=== PATIENT | male | born 1955 | race Caucasian/White ===

== ENCOUNTER 2021-07-12 08:04 | Observation (INO) | payer OTHER, SELFPAY ==
--- NOTE | 2021-07-11 08:10 | EKG12_ITS ---
Test Reason : PREOP Blood Pressure : / mmHG Vent. Rate : 074 BPM Atrial Rate : 074 BPM P-R Int : 202 ms QRS Dur : 092 ms QT Int : 356 ms P-R-T Axes : 031 021 034 degrees QTc Int : 395 ms Normal sinus rhythm Normal ECG Confirmed by MARIA VICTORIA VALENTINO, KIERSTEN ([id number]), film and video editor JOSIAH HORNER ([id number]) on 07/12/2021 8:51:29 AM Referred By: Hans Camp Confirmed By:KIERSTEN IRENE MD
[2021-07-11 08:41] LABS: Hematocrit 41.1 % (40-54); Hemoglobin 13.4 g/dL (13.0-16.5); Mean Corp Hgb Conc 32.6 g/dL (32-36); Mean Corpuscular Volume 91.9 fL (80-94); Mean Platelet Vol. 9.5 fl (6.2-12.0); Platelet Count 257 K/mm3 (150-450); RBC Distribution Width CV 13.7 % (11.6-14.6); RBC Distribution Width SD 46.6 fl (35.1-43.9); Red Blood Count 4.47 M/mm3 (4.6-6.2); White Blood Count 7.1 K/mm3 (4.4-11.0)
[2021-07-11 09:07] LABS: Anion Gap 5 (5-15); BUN 20 mg/dL (7-18); BUN/Creat Ratio 15.2 RATIO (10-20); Calcium,Total 9.7 mg/dL (8.5-10.1); Chloride 106 mmol/L (98-107); Creatinine, Serum 1.32 mg/dL (0.70-1.30); EST Glomerular Filtration Rate 58 mL/min (>60); Est Glom Filt Rate - Afr Amer 70 mL/min (>60); Glucose 137 mg/dL (74-106); Sodium Level 139 mmol/L (136-145)
[2021-07-11 09:15] LABS: Hemoglobin A1c 6.8 % (3.8-5.6)
[2021-07-12] VITALS (12 sets, daily range): BP systolic 114–147; BP diastolic 62–114; PULSE 53–84; RESP 15–20; TEMP 36.4–36.9; O2SAT 92–97; BMI 35.2
[2021-07-12] MEDS: Lactated Ringers 1,000 ML 15 ML IV ×3 (07:10→12:14)
[2021-07-12 07:40] LABS: Bedside Glucose 115 mg/dL (74-106)
[2021-07-12] MEDS: Cefazolin 2 GM in 0.9% Normal Saline 100 ML IV (07:58)
--- NOTE | 2021-07-12 08:07 | PCM.HP.STD ---
HPI - General HPI Narrative DILCIA PAGAN, is a 66 M who presents for transurethral resection of the prostate and proceed with left ureteroscopy possible laser lithotripsy and stent placement. PFSH Medical History Alcohol use Arthritis Cancer CPAP (continuous positive airway pressure) dependence Diabetes Dietary restriction Fatty liver High cholesterol History of irregular heartbeat History of pain when walking History of renal disease Hypertension Injury of head and neck Loss of consciousness Non-smoker Prostate disease Shortness of breath on exertion Syncope Home Medications atorvastatin 40 mg PO QHS 07/09/21 [History Last Taken Unknown] docusate sodium [Stool Softener] 100 mg PO PRN PRN 07/09/21 [History Last Taken Unknown] ibuprofen 400 mg PO Q6H PRN 07/09/21 [History Last Taken Unknown] lisinopril 5 mg PO DAILY 07/09/21 [History Last Taken Unknown] meloxicam 15 mg PO PRN PRN 07/09/21 [History Last Taken Unknown] metformin 500 mg PO TID 07/09/21 [History Last Taken Unknown] phenazopyridine [Pyridium] 200 mg PO TID PRN 07/09/21 [History Last Taken Unknown] pioglitazone 30 mg PO DAILY 07/09/21 [History Last Taken Unknown] tamsulosin 0.4 mg PO DAILY 07/09/21 [History Last Taken Unknown] ciprofloxacin HCl [Cipro] 500 mg PO BID #10 tab 07/12/21 [Rx Last Taken Unknown] Allergy/AdvReac Type Severity Reaction Status Date / Time No Known Allergies Allergy Verified 07/12/21 07:55 Surgical History Hx of appendectomy Social History Smoking Status: Never smoker Vital Signs Vital Signs Vital Signs: 07/12/21 07:30 Temperature 98.5 F Temperature Source Temporal Pulse Rate 61 Respiratory Rate 15 Respiratory Pattern Normal Blood Pressure 146/83 H Blood Pressure Mean 104 Blood Pressure Source Monitor Blood Pressure Position Semi-Fowlers Blood Pressure Location Left Arm Pulse Ox 93 Oxygen Delivery Method Room Air Weight Weight: 108 kg Body Mass Index (BMI) 35.2 Results Lab / Micro Data Result Diagrams: 07/11/21 08:29 07/11/21 08:29 Labs: Laboratory Results - last 24 hr 07/11/21 08:29: WBC 7.1, RBC 4.47 L, Hgb 13.4, Hct 41.1, MCV 91.9, MCH 30.0, MCHC 32.6, RDW Std Deviation 46.6 H, RDW Coeff of Coleen 13.7, Plt Count 257, MPV 9.5 07/11/21 08:29: Sodium 139, Potassium 4.0, Chloride 106, Carbon Dioxide 28.0, Anion Gap 5, BUN 20 H, Creatinine 1.32 H, Est GFR (MDRD) Af Amer 70, Est GFR (MDRD) Non-Af 58 L, BUN/Creatinine Ratio 15.2, Glucose 137 H, Calcium 9.7 07/11/21 08:29: Hemoglobin A1c 6.8 H 07/12/21 07:37: POC Glucose 115 H Micro: Microbiology 07/11/21 08:30 Interface Orders SARS-CoV-2 Antigen (Rapid) - Final
--- NOTE | 2021-07-12 08:13 | PCM.DC ---
Discharge Instructions Diet Discharge Diet: No restrictions Activity Discharge Activity: Return to Normal Activity and May Not Drive (while taking narcotic pain medications.) Dressing / Incision Call your doctor if you observe: Fever of 101 or Higher Follow Up Care Please Follow Up With: Hans Camp MD When: Call [phone] for an appointment Test Results: Test results from this visit will be discussed in further detail at your follow-up appointment, if applicable. Discharge Plan Admission Primary Reason for Your Visit: TURP Attending Provider: Hans Camp Primary Care Provider: David Rogers Instructions Patient Instructions: MICHAEL Home Recovery Discharge Orders/Prescriptions Prescriptions: New ciprofloxacin HCl [Cipro] 500 mg tablet 500 mg PO BID Qty: 10 RF: 0 Continued atorvastatin 40 mg Tablet 40 mg PO QHS RF: 0 metformin 500 mg Tablet 500 mg PO TID RF: 0 meloxicam 15 mg Tablet 15 mg PO PRN PRN (Reason: Pain) RF: 0 phenazopyridine [Pyridium] 200 mg Tablet 200 mg PO TID PRN (Reason: Pain) RF: 0 tamsulosin 0.4 mg Capsule 0.4 mg PO DAILY RF: 0 ibuprofen 400 mg Tablet 400 mg PO Q6H PRN (Reason: Pain) RF: 0 docusate sodium [Stool Softener] 100 mg Capsule 100 mg PO PRN PRN (Reason: Constipation) RF: 0 lisinopril 5 mg Tablet 5 mg PO DAILY RF: 0 pioglitazone 30 mg Tablet 30 mg PO DAILY RF: 0 Referrals / Follow Up: David Rogers MD [Primary Care Provider] - Hans Camp MD [STAFF PHYSICIAN] - Disposition Disposition (needs filled in before D/C Order can be placed): Home, Self Care
--- NOTE | 2021-07-12 08:15 | PROS_PTH ---
PATIENT: DILCIA PAGAN LOC: [facility]3 U#:[id number] AGE/SX: 66/M ROOM: VT321 RE07/12/[address]: Dr. Hans Camp MD : [id number] BED: 1 DIS: 07/14/2021 SPEC #: [id number] RECD: 07/14/21 13:35 STATUS: DIONNA MELENDEZ #: [id number] JAC: 07/12/21 08:[address]: Hans Camp DEPT: SURGICAL PATHOLOGY RECD BY: William Portillo ENTERED: 07/15/21 08:03 SP TYPE: TURP OTHR DR: Dr. David Rogers MD Tissues: Prostate, NOS Procedures: Surgery Specimen Level IV HEADER OPERATION: Cysto, TUR prostate, Olympus, ureteroscopy, retrograde, balloon PRE-OP DIAGNOSIS: BPH with lower urinary tract symptoms, calculus of bladder and ureter TISSUE SUBMITTED: Prostate tissue MICROSCOPIC DIAGNOSIS Prostate, transurethral resection: Benign nodular hyperplasia, glandular and stromal types. Chronic inflammation. Polarizable crystalline debris. AM:devante 07/16/2021 MICROSCOPIC DESCRIPTION Slides are reviewed. GROSS DESCRIPTION Received is one container labeled with the patient's name and designated prostate tissue. The specimen consists of multiple irregular fragments of pink-uriostegui, rubbery, soft tissue that in aggregate weigh 25.3 gm and measure in aggregate 7 x 6 x 2.5 cm. A few fragments of yellowish-brown stones are also noted. Char Filter Tank Tender tissue is submitted in ten cassettes. / SJ:devante 07/15/2021 TC:3 CPT: 88465
--- NOTE | 2021-07-12 10:34 | PCM.OPRPT ---
Report of Operation Date of Procedure: 07/12/21 Pre-Operative Diagnosis: Bladder stone, BPH with obstruction, possible left ureteral calculi Post-Operative Diagnosis: The same Surgery/Procedure Performed:: Cystoscopy, left retrograde pyelogram, left ureteroscopy, balloon dilation of left ureter, no stent Laser of large bladder stones and removal bladder stone fragments. Transurethral resection of a very large prostate. Description of Surgical Findings:: Patient was taken back to the operating room after smooth induction of general anesthesia I went into the bladder with a 21 Mongolian rigid cystourethroscope entire length the urethra was clear the sphincter was intact inside the prostate had a very large obstructive prostate very high riding median lobe inside the bladder there was a 3.5 cm stone in the back of the bladder on CAT scan reviewed there was a question of a stone in the ureter and so then I cannulated the left ureteral orifice with a wide wire and then dilated the distal left ureter, then performed a retrograde pyelogram went up the left side with the ureteroscope explore the upper pole midpole lower pole the kidney there was no fragments to be seen the stone that was in the ureter most passed and went down the ureter on the left side did not see a stone along the course of the ureter and then decided not to put a stent in. I then switched over to the laser fiber and laser the 3.5 cm stone of the back of the bladder this took quite some time the laser such a large stone after this was done lasering I took out all the stone fragments. And then finally we switched over to the Olympus bipolar resectoscope system using noncontinuous flow I went with the Olympus system and resected the prostate resected the median lobe resected the right lobe of the prostate left lobe prostate and then very carefully resected down to the verumontanum and the apical tissue no of the resection was passed the apical tissue fair amount of bleeding during the case I then used the button to smooth out the resection make sure there is no flapping tissue cauterized extensively and was able to control the bleeding and then we placed a 22 Mongolian three-way catheter in the bladder and continuous irrigation and the patient will be taken back to the PACU in good condition is very likely he will need to stay in the hospital day or 2 because of such a large prostate. Surgeon: gregoria Type of Anesthesia: General Drains: [address] Admit VTE Documentation VTE Present on Admission: No VTE Mechan Device Prophylaxis: SCD's VTE Pharm Prophylaxis ordered?: No
[2021-07-12 11:05] LABS: Bedside Glucose 105 mg/dL (74-106)
[2021-07-12] MEDS: Ketorolac 30 MG/ML Syringe IV (13:36)
[2021-07-12] MEDS: Lactated Ringers 1,000 ML 75 ML IV (13:54)
[2021-07-12] MEDS: 0.9% Saline Lock 10 ML Syringe IV ×2 (14:49→20:34)
[2021-07-12] MEDS: Ondansetron 4 MG/2 ML Vial IV (14:49)
[2021-07-12 14:56] LABS: Bedside Glucose 124 mg/dL (74-106)
[2021-07-12] MEDS: metFORMIN (XR) 500 MG Tablet PO (17:01)
[2021-07-12] MEDS: Tamsulosin HCl 0.4 MG Capsule PO (17:01)
[2021-07-12] MEDS: Ibuprofen 400 MG Tablet PO (17:15)
[2021-07-12] MEDS: Ketorolac 15 MG/ML Vial IV (20:33)
[2021-07-12] MEDS: Ciprofloxacin 400 MG/200 ML BAG 200 MG IV (22:12)
[2021-07-12] MEDS: Atorvastatin Calcium 40 MG Tablet PO (22:12)
[2021-07-13 00:57] VITALS: BP 112/60; PULSE 87; RESP 16; TEMP 36.6; O2SAT 94
[2021-07-13] MEDS: Lactated Ringers 1,000 ML 75 ML IV (02:19)
[2021-07-13 05:50] VITALS: BP 118/81; PULSE 77; RESP 16; TEMP 36.3; O2SAT 94
[2021-07-13 08:26] VITALS: BP 103/72; PULSE 79; RESP 16; TEMP 36.5; O2SAT 95
[2021-07-13] MEDS: metFORMIN (XR) 500 MG Tablet PO ×2 (08:32→16:49)
--- NOTE | 2021-07-13 09:43 | PCM.PN.BLA ---
Progress Note s/p turp, urine clear home today, d/c home after voids
[2021-07-13] MEDS: Docusate Sodium 100 MG Capsule PO (09:50)
[2021-07-13] MEDS: Pioglitazone Hydrochloride 30 MG Tablet PO (09:56)
[2021-07-13] MEDS: Lisinopril 5 MG Tablet PO (09:56)
[2021-07-13] MEDS: Ciprofloxacin 400 MG/200 ML BAG 200 MG IV ×2 (10:01→21:35)
--- NOTE | 2021-07-13 10:50 | CASEMGMT ---
GARETH COATES NOTE: Intro role of CM to patient and [facility] form explained re: Observation status for treatment of TURP. Explained hospitalization will be paid per his insurance policy for Outpatient billing and condition will continue to be evaluated for Inpt necessity. Also let pt know that [facility] sends paper in the billing packet with their phone number if questions arise. Discussed Pharmacy section of [facility] form and self administered medication guideline. Pt verbalizes understanding and does not have further questions. Form signed, copy made and placed in chart, and original given to pt. Kassy GILL RN CM
[2021-07-13] MEDS: Ketorolac 15 MG/ML Vial IV ×2 (11:38→22:43)
[2021-07-13] MEDS: Ibuprofen 400 MG Tablet PO (11:38)
[2021-07-13 13:48] VITALS: BP 131/54; PULSE 84; RESP 16; TEMP 36.8; O2SAT 98
[2021-07-13] MEDS: Tamsulosin HCl 0.4 MG Capsule PO (16:49)
[2021-07-13 19:55] VITALS: BP 104/69; PULSE 86; RESP 18; TEMP 36.7; O2SAT 94
[2021-07-13] MEDS: Atorvastatin Calcium 40 MG Tablet PO (20:02)
[2021-07-13] MEDS: 0.9% Saline Lock 10 ML Syringe IV (22:43)
[2021-07-14 02:00] VITALS: BP 116/73; PULSE 77; RESP 18; TEMP 36.6; O2SAT 95
[2021-07-14] MEDS: Ibuprofen 400 MG Tablet PO (06:17)
[2021-07-14] MEDS: Docusate Sodium 100 MG Capsule PO (06:17)
[2021-07-14] MEDS: metFORMIN (XR) 500 MG Tablet PO (07:42)
[2021-07-14 07:46] VITALS: BP 124/77; PULSE 76; RESP 18; TEMP 37.2; O2SAT 98
[2021-07-14] MEDS: Ciprofloxacin 400 MG/200 ML BAG 200 MG IV (09:06)
[2021-07-14] MEDS: Pioglitazone Hydrochloride 30 MG Tablet PO (09:06)
[2021-07-14] MEDS: Lisinopril 5 MG Tablet PO (09:06)
[2021-07-14 09:31] VITALS: BP 124/77; PULSE 76; RESP 16; TEMP 36.6; O2SAT 98
== END 2021-07-14 09:56 | disposition home or self-care (01) ==
LOC: SDC 11:47 → MS3 11:47
PROVIDERS: Anesthesiology; Admitting Provider Urology; PCP Family Medicine; Referring Provider Urology; Visit Provider Urology
PROC: (CPT 52318; principal; 2021-07-12 08:05)
DX: N21.0 Calculus in bladder (principal); E11.9 Type 2 diabetes mellitus without complications; E78.00 Pure hypercholesterolemia, unspecified; I10 Essential (primary) hypertension; N40.1 Benign prostatic hyperplasia with lower urinary tract symptoms; N13.8 Other obstructive and reflux uropathy; M19.90 Unspecified osteoarthritis, unspecified site; Z79.899 Other long term (current) drug therapy; Z79.84 Long term (current) use of oral hypoglycemic drugs
CPT/HCPCS: 52318; 00910; 52601; 36415; 76000; 80048; 82962; 83036; 85027; 87426; 88305; 93005; 96361; 96365; 96366; 96375; 96376; 99218; C9803; J7120; A4216; C1726; C1769; G0378; J0744; J2405

== ENCOUNTER 2021-11-22 15:12 | Emergency (ER) | payer OTHER, SELFPAY ==
[2021-11-22 15:14] VITALS: BP 163/79; PULSE 77; RESP 16; TEMP 37; O2SAT 93; BMI 35.4
--- NOTE | 2021-11-22 15:53 | CT_ITS ---
STUDY: CT Abdomen And Pelvis W/O Contrast Injection 11/22/2021 4:28 PM REASON FOR EXAM: Male, 66 years old. Abdominal pain left flank pain Individualized dose optimization techniques were used for this CT. COMPARISON: None. TECHNIQUE: CT Abdomen And Pelvis W/O Contrast Injection FINDINGS: There are atherosclerotic calcifications of visualized coronary arteries. The visualized portions of the heart are within normal limits. Normal liver. Normal gallbladder and extrahepatic biliary system. There is a benign calcified granuloma of the spleen. Normal pancreas. Normal bilateral adrenal glands. There is a 50 mm hyperdensities in the right kidney. This is 37 HU. No acute findings of the left kidney. Normal visualized stomach. Normal small intestine. Stool throughout the colon. There is non-visualization of the appendix. There are calcifications of the abdominal aorta. This is consistent for atherosclerotic disease. There is NO abdominal aortic aneurysm. Vascular workup can be obtained based on clinical correlation. Normal inferior vena cava. Subcentimeter mesenteric lymph nodes. Normal urinary bladder. There is a right-sided inguinal hernia containing adipose tissue. There are diffuse degenerative changes of the visualized lumbar spine. CT/Abdomen/Pelvis without Cont IMPRESSION: (NOT LISTED IN ORDER OF SIGNIFICANCE) Abnormal appearing mass in the inferior right kidney. ACR White Paper guidelines (Herts, et al. JACR 2018; 15(2):264-273) recommend MRI or CT without and with intravenous contrast. There are no acute findings. Other findings as above. Electronically Signed: Fredy Ny MD at 16:31 EDT ,
--- NOTE | 2021-11-22 15:55 | EDS_ITS ---
HPI HPI - GI History of Present Illness Chief Complaint: Flank Pain Informant: patient Abdominal Pain/Flank Pain Onset: Days (3-4) Context: Gradual Onset Timing: Continuous and Waxes and wanes Quality: Aching Location: Left Flank (From back radiating around down into the left groin) Current Severity: Severe Maximum Severity: Severe Worsened by: Nothing Relieved by: Nothing Nausea/Vomiting/Emesis GI Symptom: Positive for Nausea; Negative for Vomiting Diarrhea/Melena/Hematochezia GI Symptom: Negative for Diarrhea, Melena or Hematochezia Associated Symptoms Associated Symptoms: Negative for Dysuria, Frequency, Hematuria or Urgency Narrative Narrative: Patient started having what he feels like his kidney stone pain earlier this week, he is scheduled to see urology Dr. Camp after the weekend, he states he was hoping he would make it until then but the pain has become severe and he states I could not make it. He said he saw his PCP this week and was placed on an antibiotic but no pain medication. He had surgery for kidney stone earlier in the year and he states that he thinks the one that is bothering him now was seen in his left kidney but they were unable to break it up and get it out. He denies any fevers or chills or dysuria or hematuria. [facility] Medical History Alcohol use Arthritis Cancer CPAP (continuous positive airway pressure) dependence Diabetes Dietary restriction Fatty liver High cholesterol History of irregular heartbeat History of pain when walking History of renal disease Hypertension Injury of head and neck Loss of consciousness Non-smoker Prostate disease Shortness of breath on exertion Syncope Home Medications atorvastatin 40 mg tablet 40 mg PO QHS 07/09/21 [History Last Taken Unknown] docusate sodium 100 mg capsule (Stool Softener) 100 mg PO PRN PRN Constipation 07/09/21 [History Last Taken Unknown] ibuprofen 400 mg tablet 400 mg PO Q6H PRN Pain 07/09/21 [History Last Taken Unknown] lisinopril 5 mg tablet 5 mg PO DAILY 07/09/21 [History Last Taken Unknown] meloxicam 15 mg tablet 15 mg PO PRN PRN Pain 07/09/21 [History Last Taken Unknown] metformin 500 mg tablet 500 mg PO TID 07/09/21 [History Last Taken Unknown] phenazopyridine 200 mg tablet (Pyridium) 200 mg PO TID PRN Pain 07/09/21 [History Last Taken Unknown] pioglitazone 30 mg tablet 30 mg PO DAILY 07/09/21 [History Last Taken Unknown] tamsulosin 0.4 mg capsule 0.4 mg PO DAILY 07/09/21 [History Last Taken Unknown] ciprofloxacin HCl 500 mg tablet (Cipro) 500 mg PO BID #10 tabs 07/12/21 [Rx Last Taken Unknown] cyclobenzaprine 10 mg tablet 10 mg PO TID PRN Muscle Spasm #20 TABLETS 11/22/21 [Rx Last Taken Unknown] hydrocodone-acetaminophen 5-325mg 5mg-325mg 1 tab PO Q4H PRN PRN Pain 3 days #15 TABLETS 11/22/21 [Rx Last Taken Unknown] Allergy/AdvReac Type Severity Reaction Status Date / Time No Known Allergies Allergy Verified 11/22/21 15:14 Surgical History Hx of appendectomy Social History Smoking Status: Never smoker ROS ROS ED Constitutional Constitutional ED: Denies chills or fever(s) Eyes Eyes: Denies change in vision or diplopia ENT ENT ED: Denies rhinorrhea or sore throat Cardiovascular Cardiovascular: Denies chest pain or palpitations Respiratory/Chest Respiratory/Chest: Denies cough or dyspnea Gastrointestinal Gastrointestinal: Reports abdominal pain and nausea; Denies diarrhea or vomiting Genitourinary Genitourinary ED: Reports flank pain; Denies dysuria or hematuria Musculoskeletal Musculoskeletal: Reports back pain; Denies neck pain Integumentary Denies abscess or rash Neurologic Neurologic: Denies headache(s), paresthesias or weakness Psychiatric Psychiatric: Denies anxiety or suicidal thoughts EXAM Physical Exam Const Vital Signs: 11/22/21 15:14 11/22/21 15:40 11/22/21 17:58 Temperature 98.6 F Temperature Source Temporal Pulse Rate 77 65 Respiratory Rate 16 18 Respiratory Effort Normal Non-Labored Respiratory Pattern Normal Blood Pressure 163/79 H 135/86 H Blood Pressure Mean 107 102 Pulse Ox 93 95 Oxygen Delivery Method Room Air Room Air 11/22/21 19:55 Temperature Temperature Source Pulse Rate 78 Respiratory Rate 18 Respiratory Effort Respiratory Pattern Blood Pressure Blood Pressure Mean Pulse Ox 97 Oxygen Delivery Method Room Air Positive well nourished and well developed General Appearance ED: well developed and NAD HEENT Reports moist mucous membranes normocephalic and atraumatic Eyes PERRL and EOMs intact bilaterally Neck full ROM and supple Resp normal respiratory effort and clear to auscultation bilaterally Cardio regular rate, regular rhythm and no murmurs GI non-tender and non-distended Auscultation: normoactive bowel sounds Palpation: soft Back/Spine General Back: CVA tenderness left and other FROM Extremity normal to inspection General Extremety ED: Negative for edema, pulses abnormal or tenderness General Extremity: Negative for edema or pulses abnormal Neuro oriented x3, CN's II-XII intact bilaterally and no sensory deficits noted Sensorium / Orientation: awake and alert Motor Exam: strength 5/5 throughout Skin no rashes or lesions noted and no wounds MDM MDM MDM Narrative Medical decision making narrative: Labs are noted which are unremarkable, his CT shows no uroliths in the left side including the kidney and collecting system and ureter, however he has what appears to be a mass in the inferior right kidney, further imaging is recommended. I initially gave him Zofran and Toradol and morphine, he states that he was still in severe pain and it really did not help so then he was given Dilaudid. This helped a little, I gave him Norflex later which maybe helped a little to but he was still sore but not in extreme pain. I discussed with Dr. Camp who reviewed the CT and agrees there is nothing on the left side that explains his pain, certainly muscular pain is in the differential. He looked at the mass and decided he would probably get an IV contrasted scan on the patient so we decided to get that here since the patient was amenable to it. The results are noted and I discussed them with the patient, he has an appointment with Dr. Camp after the weekend on Thursday, he was given prescriptions for analgesics and muscle relaxers to use in the meantime. He is comfortable with that plan and he is on ciprofloxacin and that his doctor prescribed and I would advise continuing it for now. Lab Data Attestation: I reviewed the patient's lab results. Labs: Laboratory Results - last 24 hr 11/22/21 11/22/21 11/22/21 15:40 15:40 15:40 WBC 8.0 RBC 4.72 Hgb 13.6 Hct 41.8 MCV 88.6 MCH 28.8 MCHC 32.5 RDW Std Deviation 46.8 H RDW Coeff of Coleen 14.5 Plt Count 269 MPV 9.8 Immature Gran % (Auto) 0.500 Neut % (Auto) 68.8 Lymph % (Auto) 21.5 Mcclain % (Auto) 7.0 Eos % (Auto) 1.8 Baso % (Auto) 0.4 Absolute Neuts (auto) 5.5 Absolute Lymphs (auto) 1.71 Nucleated RBC % 0 Sodium 134 L Potassium 4.0 Chloride 104 Carbon Dioxide 25.0 Anion Gap 5 BUN 16 Creatinine 1.03 Estim Creat Clear Calc 70.55 Est GFR (MDRD) Af Amer 93 Est GFR (MDRD) Non-Af 77 BUN/Creatinine Ratio 15.5 Glucose 99 Calcium 9.2 Urine Color Yellow Urine Clarity Clear Urine pH 6.0 Ur Specific [place] 1.015 Urine Protein 15 H Urine Glucose (UA) Normal Urine Ketones Negative Urine Occult Blood Negative Urine Nitrite Negative Urine Bilirubin Negative Urine Urobilinogen Normal Ur Leukocyte Esterase 25 H Urine RBC 0-5 SEEN Urine WBC 5-10 SEEN Ur Squamous Epith Cells 5-10 SEEN Urine Bacteria RARE Urine Mucus 0 SEEN Radiography Diagnostic Testing: Clinical Impression(s) from Imaging Studies Abdomen/Pelvis CT 11/22/21 15:53 IMPRESSION: (NOT LISTED IN ORDER OF SIGNIFICANCE) Abnormal appearing mass in the inferior right kidney. ACR White Paper guidelines (Herts, et al. JACR 2018; 15(2):264-273) recommend MRI or CT without and with intravenous contrast. There are no acute findings. Other findings as above. Electronically Signed: Fredy Ny MD at 16:31 EDT Reading Location ID and State: [facility] / [place] , Service support , Abdomen/Pelvis CT 11/22/21 20:04 IMPRESSION: (NOT LISTED IN ORDER OF SIGNIFICANCE) Abnormal appearing mass in the inferior right kidney is a Bosniak III lesion. ACR White Paper guidelines (Herts, et al. JACR 2018; 15(2):264-273) suggest referral for management if a referral has not already been performed. Other findings as above. Electronically Signed: Fredy Ny MD at 20:23 EDT Reading Location ID and State: [facility] / [place] , Service support , Discharge Plan Triage Chief Complaint: Flank Pain ED Provider: Marlon Sy Dx/Rx/DC Orders Clinical Impression: Acute left flank pain, Right renal mass Instructions: ED Flank Pain, Uncertain Cause, ED Tumor, Uncertain Cause Prescriptions: New cyclobenzaprine [cyclobenzaprine] 10 mg tablet 10 mg PO TID PRN (Reason: Muscle Spasm) Qty: 20 0RF hydrocodone-acetaminophen [hydrocodone-acetaminophen] 5-325 mg tablet 1 tab PO Q4H PRN PRN (Reason: Pain) 3 Days Qty: 15 0RF No Action atorvastatin 40 mg Tablet 40 mg PO QHS metformin 500 mg Tablet 500 mg PO TID meloxicam 15 mg Tablet 15 mg PO PRN PRN (Reason: Pain) phenazopyridine [Pyridium] 200 mg Tablet 200 mg PO TID PRN (Reason: Pain) tamsulosin 0.4 mg Capsule 0.4 mg PO DAILY ibuprofen 400 mg Tablet 400 mg PO Q6H PRN (Reason: Pain) docusate sodium [Stool Softener] 100 mg Capsule 100 mg PO PRN PRN (Reason: Constipation) lisinopril 5 mg Tablet 5 mg PO DAILY pioglitazone 30 mg Tablet 30 mg PO DAILY ciprofloxacin HCl [Cipro] 500 mg tablet 500 mg PO BID Qty: 10 0RF Primary Care Provider: David Rogers Referrals: David Rogers MD [Primary Care Provider] - Hans Camp MD [Med Staff - Active Staff] - Keep [facility] appointment Disposition Disposition: Home, Self Care
[2021-11-22 16:01] LABS: Mucous, Urine 0 SEEN /hpf (<or=2+)
[2021-11-22] MEDS: Ketorolac 15 MG/ML Vial IV (16:01)
[2021-11-22] MEDS: Ondansetron 4 MG/2 ML Vial IV (16:01)
[2021-11-22] MEDS: Morphine 4 MG/ML Syringe IV (16:02)
[2021-11-22 16:04] LABS: Color, Urine Yellow (Yellow); Glucose, Dipstick Normal (Normal); Ketone-Dipstick Negative (Negative); Leukocyte Esterase-Dipstick 25 /ul (Negative); Nitrite-Dipstick Negative (Negative); Occult Blood-Urine Negative /ul (Negative); Protein-Dipstick 15 mg/dl (Negative); Specific Gravity, Urine 1.015 (1.002-1.030); Urine Bilirubin Dipstick Negative (Negative); Urine Clarity Clear (Clear); Urine Urobilinogen Normal (Normal)
[2021-11-22 16:06] LABS: Absolute Lymphocyte Count 1.71 X10^3/uL (0.83-4.51); Absolute Neutrophil Count 5.5 X10^3/uL (2.0-7.7); Basophil# 0.03 X10^3/uL; Basophil% 0.4 % (0-1); Eosinophil# 0.14 X10^3/uL; Eosinophils% 1.8 % (0-5); Hematocrit 41.8 % (40-54); Hemoglobin 13.6 g/dL (13.0-16.5); Lymphocyte # 1.71 X10^3/ul (0.83-4.51); Lymphocyte % 21.5 % (19-41); Mean Corp Hgb Conc 32.5 g/dL (32-36); Mean Corpuscular Hgb 28.8 pg (27.0-32.0); Mean Corpuscular Volume 88.6 fL (80-94); Mean Platelet Vol. 9.8 fl (6.2-12.0); Monocyte# 0.56 X10^3/uL; NRBC Flagged by Analyzer 0 % (0-5); Neutrophil # 5.48 X10^3/uL (2.7-7.7); Neutrophil % 68.8 % (47-70); Platelet Count 269 K/mm3 (150-450); RBC Distribution Width CV 14.5 % (11.6-14.6); RBC Distribution Width SD 46.8 fl (35.1-43.9); Red Blood Count 4.72 M/mm3 (4.6-6.2)
[2021-11-22 16:13] LABS: Bacteria RARE /hpf (None Seen); Red Blood Cells-Urine 0-5 SEEN /hpf (0-5); Squamous Epithelial Cells - UA 5-10 SEEN /hpf (0-5); White Blood Cells 5-10 SEEN /hpf (0-5)
[2021-11-22 16:16] LABS: Anion Gap 5 (5-15); BUN 16 mg/dL (7-18); BUN/Creat Ratio 15.5 RATIO (10-20); Calcium,Total 9.2 mg/dL (8.5-10.1); Chloride 104 mmol/L (98-107); Creatinine, Serum 1.03 mg/dL (0.70-1.30); EST Glomerular Filtration Rate 77 mL/min (>60); Est Glom Filt Rate - Afr Amer 93 mL/min (>60); Estimated Creatinine Clearance 70.55 ml/min; Glucose 99 mg/dL (74-106); Sodium Level 134 mmol/L (136-145)
[2021-11-22] MEDS: HYDROmorphone 1 MG/ML Syringe IV (17:55)
[2021-11-22 17:58] VITALS: BP 135/86; PULSE 65; RESP 18; O2SAT 95
[2021-11-22] MEDS: Orphenadrine 60 MG/2 ML Ampul IV (19:53)
[2021-11-22] MEDS: 0.9% Normal Saline 1,000 ML 999 ML IV (19:53)
[2021-11-22 19:55] VITALS: PULSE 78; RESP 18; O2SAT 97
--- NOTE | 2021-11-22 20:04 | CT_ITS ---
STUDY: CT Abdomen And Pelvis W/ Contrast Injection 11/22/2021 8:20 PM REASON FOR EXAM: Male, 66 years old. Abdominal pain left flank pain, right renal mass vs cyst Individualized dose optimization techniques were used for this CT. COMPARISON: Study done earlier today. TECHNIQUE: CT Abdomen And Pelvis W/ Contrast Injection IV 100mL [id number] FINDINGS: There are atherosclerotic calcifications of visualized coronary arteries. The visualized portions of the heart are within normal limits. Prior surgical resection of the right ribs. Normal liver. Normal gallbladder and extrahepatic biliary system. There is a benign calcified granuloma of the spleen. Normal pancreas. Normal bilateral adrenal glands. There is a 50 mm hyperdensities in the right kidney. This is 37 HU on the non contrast study. It is 75 HU on the post contrast study. There is mild peripheral wall enhancement. No acute findings of the left kidney. Normal visualized stomach. Normal small intestine. Stool throughout the colon. There is non-visualization of the appendix. There are calcifications of the abdominal aorta. This is consistent for atherosclerotic disease. There is NO abdominal aortic aneurysm. Vascular workup can be obtained based on clinical correlation. Normal inferior vena cava. Subcentimeter mesenteric lymph nodes. Normal urinary bladder. There is a right-sided inguinal hernia containing adipose tissue. There are diffuse degenerative changes of the visualized lumbar spine. CT/Abdomen/Pelvis W IV Cont ONLY IMPRESSION: (NOT LISTED IN ORDER OF SIGNIFICANCE) Abnormal appearing mass in the inferior right kidney is a Bosniak III lesion. ACR White Paper guidelines (Herts, et al. JACR 2018; 15(2):264-273) suggest referral for management if a referral has not already been performed. Other findings as above. Electronically Signed: Fredy Ny MD at 20:23 EDT ,
[2021-11-22] MEDS: proMETHazine 25 MG Tablet PO (20:31)
[2021-11-22 21:39] VITALS: BP 134/88; PULSE 79; RESP 19; O2SAT 100
== END 2021-11-22 21:52 | disposition home or self-care (01) ==
PROVIDERS: Emergency Provider Emergency Medicine; PCP Family Medicine; Visit Provider Emergency Medicine
DX: R10.9 Unspecified abdominal pain (principal); N28.89 Other specified disorders of kidney and ureter; K76.0 Fatty (change of) liver, not elsewhere classified
CPT/HCPCS: 74176; 74177; 80048; 81001; 85025; 96374; 96375; 99282; J7030; Q9967; A4216; J2405

== ENCOUNTER → 2022-06-24 | Outpatient (CLI) | payer OTHER, SELFPAY ==
[2022-06-24 13:48] LABS: PSA,Total - Annual Screen 0.76 ng/mL (0.00-4.00)
== END | disposition home or self-care (01) ==
LOC: LAB 12:24
PROVIDERS: PCP Family Medicine; Visit Provider Urology
DX: Z12.5 Encounter for screening for malignant neoplasm of prostate (principal)
CPT/HCPCS: 36415; 84153; G0103

== ENCOUNTER → 2022-06-30 | Outpatient (CLI) | payer OTHER, SELFPAY ==
--- NOTE | 2022-06-30 18:51 | CT_ITS ---
STUDY: CT ABDOMEN AND PELVIS WITH AND WITHOUT CONTRAST REASON FOR EXAM: Male, 67 years old. Known right renal mass RADIATION DOSAGE (If Supplied By Facility): CTDIvol = ( 26.15 ) mGy, DLP = ( 4990.08 ) mGycm TECHNIQUE: Transaxial images were obtained from the dome of the diaphragm to the symphysis pubis without oral contrast. IV 100mL Isovue-[id number] was administered. Sagittal and coronal images were reconstructed. Individualized dose optimization techniques were used for this CT. COMPARISON: 11/22/2021 FINDINGS: Chronic elevation of the right hemidiaphragm, stable interstitial changes in the lung bases. There are calcified coronary vessels. Normal liver. The gallbladder is contracted. There are multiple benign calcified granulomata of the spleen. Normal pancreas. Normal bilateral adrenal glands. No obstructive uropathy. There is a stable 4.43 x 4.68 cm low-density peripherally enhancing low-density mass in the right kidney. On the contrasted study it measures 14 Hounsfield units on delayed images it measures 12 this is consistent with fluid density. Another year follow-up is recommended to assess stability. No other suspicious renal lesion is identified. Delayed images show normal emptying of contrast from both collecting systems. Normal visualized stomach. Normal small intestine. Retained stool in the colon There is non-visualization of the appendix. Surgical anastomosis in the right upper quadrant does not show a leak. There is diffuse atherosclerotic calcification of the abdominal aorta, without a demonstrated aneurysm. Normal inferior vena cava. Normal retroperitoneum. Normal urinary bladder. There are prostatic calcifications. Normal abdominal wall. There are diffuse degenerative changes of the visualized lumbar spine, and pelvis. CT/CT Abd/Pelvis W/WO Contrast IMPRESSION: Stable low-density renal lesion which shows stable enhancement around its periphery. Hounsfield units measure fluid density. No significant change since last year. Another year follow-up study is recommended to assess stability. If it remains stable at that time, no specific further follow-up would be needed Retained stool throughout the colon No free intraperitoneal fluid, air, or suspicious adenopathy Overall, no significant interval change since the previous study Electronically Signed: Matthieu Talley MD at 7:58 EDT ,
[2022-06-30 19:21] LABS: CREATININE FINGERSTICK 1.1 mg/dL (0.70-1.30); EGFR FINGERSTICK > 60.0000 mL/min (>60)
== END | disposition home or self-care (01) ==
PROVIDERS: PCP Family Medicine; Visit Provider Urology
DX: D41.01 Neoplasm of uncertain behavior of right kidney (principal)
CPT/HCPCS: 74178; Q9967

== ENCOUNTER → 2023-03-31 | Outpatient (CLI) | payer MEDICARE, SELFPAY | END | disposition home or self-care (01) | PROVIDERS: PCP Family Medicine; Referring Provider Urology; Visit Provider Urology | DX: R30.0 Dysuria (principal) | CPT/HCPCS: 87086 ==